=== PATIENT | female | born 1940 ===

== ENCOUNTER 2017-07-02 13:36 | Emergency (ER) | payer MEDICARE ==
--- NOTE | 2017-07-02 14:45 | C.PDOC ---
History Of Present Illness 76 year old female presents to the ED sent from PMD Dr Maria Alejandra Villa for evaluation of chest pain. She was given two baby aspirins while at doctor's office. Patient states five days ago she experienced sudden onset of a chest pressure with associated nausea that resolved after 20-30 minutes. She reports that one episode, and has not experienced these symptoms again. She currently denies chest pain, shortness of breath, weakness, numbness, nausea, or vomiting. Sent by Dr Maria Alejandra Villa. EKG in office SR at 71 bpm with PVC. Time Seen by Provider: 07/02/17 14:41 Chief Complaint (Nursing): Chest Pain History Per: Patient, Family (son) History/Exam Limitations: no limitations Onset/Duration Of Symptoms: Days (5 days ago), Sudden Onset (symptoms resolved ) Current Symptoms Are (Timing): Still Present Quality: Pressure Associated Symptoms: denies: Nausea, Dyspnea, Diaphoresis Modifying Factors: None Exacerbating Factors: None Recent travel outside of the [place]: No Additional History Per: Prior Records (sent from PMD ) Past Medical History Reviewed: Historical Data, Nursing Documentation, Vital Signs Vital Signs: Last Vital Signs Temp 97.7 F 07/02/17 15:38 Pulse 67 07/02/17 15:38 Resp 16 07/02/17 15:38 BP 148/85 07/02/17 15:38 Pulse Ox 97 07/02/17 15:38 - Medical History PMH: Colonic Polyps, HTN - [facility] Procedures COLONOSCOPY (06/21/14) Family History: States: Unknown Family Hx - Social History Hx Alcohol Use: No Hx Substance Use: No Review Of Systems Constitutional: Negative for: Fever, Chills Cardiovascular: Positive for: Chest Pain (resolved 5 days ago). Negative for: Palpitations Respiratory: Negative for: Cough, Shortness of Breath Gastrointestinal: Negative for: Nausea, Vomiting, Abdominal Pain, Diarrhea Neurological: Negative for: Weakness, Numbness, Headache, Dizziness Physical Exam - Physical Exam Appears: Non-toxic, No Acute Distress Skin: Warm, Dry Head: Atraumatic, Normacephalic Eye(s): bilateral: Normal Inspection, PERRL, EOMI Oral Mucosa: Moist Neck: Normal ROM, Supple Chest: Symmetrical, No Deformity Cardiovascular: Rhythm Regular Respiratory: Normal Breath Sounds, No Rales, No Rhonchi, No Wheezing Gastrointestinal/Abdominal: Soft, No Tenderness, No Distention, No Guarding, No Rebound Extremity: Normal ROM, No Tenderness, No Pedal Edema, No Calf Tenderness, Capillary Refill (good capillary refill, less than two seconds ), No Deformity, No Swelling Neurological/Psych: Oriented x3, Normal Speech, Normal Motor, Normal Sensation Gait: Steady ED Course And Treatment - Laboratory Results Result Diagrams: 07/02/17 14:51 07/02/17 14:51 Lab Interpretation: No Acute Changes ECG: Interpreted By Me, Viewed By Me ECG Rhythm: Sinus Rhythm ECG Interpretation: No Acute Changes Interpretation Of ECG: NS at 75 bpm with normal axis and nonspecific ST-T wave abnormality. Rate From EC (bpm) O2 Sat by Pulse Oximetry: 100 (room air ) - Radiology CXR: Interpreted by Me, Viewed By Me CXR Interpretation: Yes: No Acute Disease Progress Note: EKG, CXR, UA, and blood work were ordered. Medical Decision Making Medical Decision Making: Impression: chest pain, one episode 5 days ago Plan: * EKG * CXR * Labs Progress: All diagnostics reviewed with no acute findings: negative troponin. EKG shows no ischemic changes. CXR shows no acute disease. patient remained well in no acute distress and is asyptomatic in the ED. I discussed and gave copy of all results to patient. Advised she follow up with DR Villa and have cardiology follow up. Disposition Counseled Patient/Family Regarding: Diagnosis, Need For Followup - Disposition Referrals: Crhistin Allen MD [Staff Provider] - Disposition: HOME/ ROUTINE Disposition Time: 15:33 Condition: STABLE Additional Instructions: Your labs and CXR were normal. Please follow up with supervisor bit and [facility] department and your primary doctor for further evaluation and care Christine laboratorios y CXR dilip normales. Por favor, siga con el cardilogo y bob m dico de cabecera para ms evaluacin y atencin Regrese al servicio de urgencias en cualquier momento si los sntomas persisten o empeoran. 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 - Scribe Statement The provider has reviewed the documentation as recorded by the Scribe Marlene Bryon All medical record entries made by the Kamila were at my direction and personally dictated by me. I have reviewed the chart and agree that the record accurately reflects my personal performance of the history, physical exam, medical decision making, and the department course for this patient. I have also personally directed, reviewed, and agree with the discharge instructions and disposition.
[2017-07-02 14:55] LABS: BASO % 0.5 % (0.0-2.0); EOS # 0.5 K/uL (0.0-0.7); EOS % 9.7 % (0.0-4.0); HEMATOCRIT 40.1 % (34.0-47.0); LYMPH # 2.1 K/uL (1.0-4.3); LYMPH % 37.2 % (20.0-40.0); MEAN CORPUSCULAR HEMOGLOBIN 31.6 pg (27.0-31.0); MEAN CORPUSCULAR HGB CONC 33.6 g/dL (33.0-37.0); MEAN PLATELET VOLUME 7.6 fL (7.2-11.7); MONO # 0.4 K/uL (0.0-0.8); MONO % 6.6 % (0.0-10.0); NRBC % 0.2 % (0.0-2.0); RED CELL DISTRIBUTION WIDTH 13.6 % (11.5-14.5); WHITE BLOOD COUNT 5.5 K/uL (4.8-10.8)
[2017-07-02 15:03] LABS: INR 1.2
[2017-07-02 15:07] LABS: ALKALINE PHOSPHATASE 66 U/L (38-126); ALT/SGPT 29 U/L (9-52); AST/SGOT 35 U/L (14-36); BLOOD UREA NITROGEN 9 mg/dL (7-17); CALCIUM 9.8 mg/dl (8.6-10.4); CARBON DIOXIDE 23 mmol/L (22-30); CHLORIDE 104 mmol/L (98-107); GFR AFRICAN-AMERICAN > 60; GLUCOSE,RANDOM 84 mg/dL (65-105); POTASSIUM 3.9 mmol/L (3.6-5.2); SODIUM 143 mmol/L (132-148); TOTAL PROTEIN 8.5 g/dL (6.3-8.3)
--- NOTE | 2017-07-02 15:21 | RAD ---
HISTORY: Chest pain COMPARISON: 08/23/2015. TECHNIQUE: Chest PA and lateral FINDINGS: LUNGS: The lungs are well inflated and clear. PLEURA: No significant pleural effusion identified. No pneumothorax apparent. CARDIOVASCULAR: Normal. OSSEOUS STRUCTURES: No significant abnormalities. VISUALIZED UPPER ABDOMEN: Normal. OTHER FINDINGS: None. IMPRESSION: No active pulmonary disease.
[2017-07-02 15:30] LABS: RBC URINE < 1 /hpf (0-3); URINE BILIRUBIN NEGATIVE (NEGATIVE); URINE BLOOD NEGATIVE (NEGATIVE); URINE COLOR Colorless (YELLOW); URINE GLUCOSE (UA) NORMAL (Normal); URINE KETONE NEGATIVE (NEGATIVE); URINE LEUKOCYTE ESTERASE NEG Leu/uL (Negative); URINE PROTEIN NEGATIVE (NEGATIVE); URINE UROBILINOGEN NORMAL mg/dL (0.2-1.0); WBC URINE < 1 /hpf (0-5)
[2017-07-02 15:39] VITALS: BP 148/85; PULSE 67; RESP 16; TEMP 97.7
--- NOTE | 2017-07-03 19:04 | CARD ---
APPROVED REPORT EKG Measurement Heart [id number] <Conclusion> Normal sinus rhythm Possible Left atrial enlargement Nonspecific ST and T wave abnormality Abnormal ECG
[2017-07-03 19:33] VITALS: O2SAT 100
== END 2017-07-02 15:45 | disposition home or self-care (01) ==
LOC: C.ER 13:36
DX: R07.9 Chest pain, unspecified (principal)